=== PATIENT | male | born 1950 | race Caucasian/White ===

== ENCOUNTER 2017-03-04 10:57 | Outpatient (CLI) | payer MEDICARE, BC ==
--- NOTE | 2017-03-05 07:52 | RAD ---
CHEST 2 VIEWS: Date: 03/04/17 HISTORY: Pneumonia. Dyspnea. FINDINGS: No comparison. The cardiac silhouette and pulmonary vasculature are unremarkable. Mediastinum is midline. There is no confluent air space consolidation, pneumothorax, or pleural fluid evident. Initially, a frontal i mage was included on the exam with a double exposure resulting in extensive artifact. This will be d eleted from the exam. IMPRESSION: No active cardiopulmonary abnormalities are demonstrated. POS: DANIELLA
== END 2017-03-04 10:58 | disposition home or self-care (01) ==
LOC: BUREKG 10:57
PROVIDERS: ATTEND Family Medicine
DX: J18.1 Lobar pneumonia, unspecified organism (principal); R06.09 Other forms of dyspnea
CPT/HCPCS: 71020